=== PATIENT | male | born 1975 | race Caucasian/White ===

== ENCOUNTER 2023-12-05 07:22 | Day surgery (SDC) | payer OTHER, SELFPAY ==
[2023-12-05] VITALS (14 sets, daily range): BP systolic 68–154; BP diastolic 75–95
[2023-12-05 07:57] LABS: % Basophils 0.9 % (0-2); % Eosinophils 3.1 % (0-6); % Immature Granulocytes 0.9 % (0-0.5); % Lymphocytes 35.6 % (20.5-51.1); % Neutrophils 51.5 % (42.2-75.2); Absolute Basophils 0.1 10^3/uL (0-0.2); Absolute Eosinophils 0.2 10^3/uL (0-0.7); Absolute Immature Granulocytes 0.1 10^3/uL (0-0.05); Absolute Lymphocytes 2.4 10^3/uL (1.2-3.4); Absolute Monocytes 0.6 10^3/uL (0.1-0.6); Absolute Neutrophils 3.5 10^3/uL (1.4-6.5); Hematocrit 44.5 % (39.0-52.0); Hemoglobin 15.4 g/dL (13.0-18.0); Mean Corp Hgb Conc. 34.6 g/dL (33.0-37.0); Mean Corpuscular Hgb 29.8 pg (27.0-31.0); Mean Corpuscular Volume 86.1 fL (80.0-94.0); Mean Platelet Volume 10.5 fL (7.4-10.4); Nucleated Red Blood Cells % 0 % (-); Platelet Count 294 10^3/uL (130-400); Red Blood Cell Count 5.17 10^6/uL (4.70-6.10); Red Cell Dist. Width 12.5 % (11.5-14.5); White Blood Cell Count 6.9 10^3/uL (4.8-10.8)
[2023-12-05 08:05] LABS: APTT 27.1 Sec (23.4-35.0); INR 0.96; PT 12.7 Sec (11.4-14.6)
[2023-12-05 08:08] LABS: ALT (SGPT) 27 U/L (0-50); AST (SGOT) 17 U/L (17-59); Albumin 4.9 g/dl (3.5-5.0); Alkaline Phosphatase 70 U/L (38-126); Blood Urea Nitrogen 18 mg/dl (9-20); Calcium 10.1 mg/dl (8.4-10.2); Carbon Dioxide 29 mmol/L (22-30); Chloride 105 mmol/L (98-107); Direct Bilirubin 0.1 mg/dl (0.0-0.4); Glucose 94 mg/dl (70-99); LDH 171 U/L (120-246); Potassium 4.7 mmol/L (3.5-5.1); Sodium 141 mmol/L (135-145); Total Bilirubin 0.9 mg/dl (0.2-1.3); Total Protein 7.4 g/dl (6.3-8.2); eGFR > 60.00
[2023-12-05] MEDS: ANCEF 10 IV (08:34)
[2023-12-05] MEDS: NSS 1000 IV (12:36)
--- NOTE | 2023-12-05 14:13 | W.PN.GENERIC ---
Assessment / Plan
-
Assessment/Plan:
This is a pleasant 48-year-old male with incidental finding of left renal mass. He underwent renal biopsy and MWA today in IR
He is voiding spontaneously without hematuria
He is tolerating POs- no nausea or vomiting
Left flank site is CDI. Mild tenderness as expected. No hematoma
Plan to discharge home today.
I spent a total of 35 minutes in counseling and coordination of care with the patient, reviewing the history, physical exam, imaging as well as discussing the procedure and expected outcome and reviewing pertinent discharge instructions.
Physician Progress Note
Subjective
This a pleasant 48-year-old male with past medical history significant for kidney stones, pancreatitis, anxiety and gout. On recent CAT scan imaging he was found to have a 1.3 x 1.5 cm solid enhancing left renal mass. He underwent a ranl biopsy and
microwave ablation today. He is feeling well and tolerating POs. He denies nausea or vomiting. He has some mild left flank pain. He is voiding spontaneously. He has had no hematuria.
PMH: Kidney stones , pancreatitis, anxiety, gout, .
PSH: Lithotripsy, tonsillectomy, wisdom tooth extraction, mastectomy.
Social History: Patient is a nonsmoker
Allergies: Hydrocodone (vomiting), sulfamethoxazole and trimethoprim (possible cause of pancreatitis).
Current Medications: Colchicine, Creon, diazepam, Sudafed, tolterodine.
Physical examination: This is a well-nourished well-developed 48-year-old male in no acute distress. Color is good. Skin is warm and dry. Heart is regular. Lungs are clear throughout. Abdomen is soft and nontender with bowel sounds present. No CVA
tenderness. Dressing is CDI. No hematoma. No lower extremity edema. He ambulates independently.
Imaging: CT of abdomen and pelvis 07/30/2023: 1.3 x 1.5 cm solid enhancing left lateral pole renal mass. I personally reviewed these images.
Objective
Vital Signs
Temp Pulse Resp BP Pulse Ox
98 F 62 16 129/90 100
12/05/23 13:20 12/05/23 13:54 12/05/23 13:54 12/05/23 13:54 12/05/23 13:54
Lab Results
12/05/23 07:45
12/05/23 07:45
Physical examination: This is a well-nourished well-developed 48-year-old male in no acute distress. Color is good. Skin is warm and dry. Heart is regular. Lungs are clear throughout. Abdomen is soft and nontender with bowel sounds present. No CVA
tenderness. Dressing is CDI. No hematoma. No lower extremity edema. He ambulates independently.
Imaging: CT of abdomen and pelvis 07/30/2023: 1.3 x 1.5 cm solid enhancing left lateral pole renal mass. I personally reviewed these images.
== END 2023-12-05 15:20 | disposition home or self-care (01) ==
LOC: RADI 07:22
PROVIDERS: ATTENDING PHYSICIAN Radiology Vascular & Interventional Radiology; FAMILY PHYSICIAN Nurse Practitioner Adult Health; REFERRING PHYSICIAN Urology
DX: N28.89 Other specified disorders of kidney and ureter (principal)
CPT/HCPCS: 50592; 50200; 88305; 36415; 77013; 80053; 82248; 83615; 85025; 85610; 85730

== ENCOUNTER → 2024-06-26 14:23 | Outpatient (REF) | payer BC, SELFPAY | LOC: RAD 14:23 | PROVIDERS: ATTENDING PHYSICIAN Urology; FAMILY PHYSICIAN Family Medicine | DX: N28.89 Other specified disorders of kidney and ureter (principal) | CPT/HCPCS: 74170; Q9967 ==

== ENCOUNTER → 2024-08-11 13:10 | Outpatient (REF) | payer BC, SELFPAY | LOC: MRI 3T 13:10 | PROVIDERS: ATTENDING PHYSICIAN Urology; FAMILY PHYSICIAN Family Medicine | DX: R97.20 Elevated prostate specific antigen [PSA] (principal) | CPT/HCPCS: 72197; A9575 ==